=== PATIENT | male | born 1990 | race Two or more races ===

== ENCOUNTER → 2022-07-16 15:01 | Outpatient (BNVA) | payer SELFPAY | PROVIDERS: PCP Nurse Practitioner Family; Visit Provider Physician Assistant | DX: Z02.79 Encounter for issue of other medical certificate (principal) ==

== ENCOUNTER 2022-08-09 10:11 | Outpatient (REF) | payer OTHER, SELFPAY ==
[2022-08-09 13:59] LABS: Hematocrit 43.8 % (42.0-52.0); Hemoglobin 14.9 g/dl (14.0-18.0); Mean Corpuscular Hemoglobin 29.8 pg (27.0-33.0); Mean Corpuscular Volume 87.6 fL (80.0-98.0); Mean Platelet Volume 10.4 fL (9.4-12.4); Platelet Count 278 X10*3/uL (160-400); White Blood Count 4.7 X10*3/uL (4.8-10.8)
[2022-08-09 14:12] LABS: Alanine Aminotransferase 19 U/L (0-40); Albumin Level 4.4 g/dL (3.5-5.0); Alkaline Phosphatase 45 U/L (39-117); Anion Gap 12 (12-20); Aspartate Amino Transferase 15 U/L (5-37); Bilirubin Total 1.1 mg/dL (0.0-1.0); Blood Urea Nitrogen 17 mg/dL (9-16); Calcium 9.4 mg/dL (8.4-10.2); Carbon Dioxide 26 mmol/L (22-29); Chloride 107 mmol/L (96-108); Cholesterol 184 mg/dL; Estimated Glomerular Filt Rate > 60; Glucose Fasting 94 mg/dL (60-99); HDL Cholesterol 40 mg/dL; LDL Cholesterol Calculated 135 mg/dl; Potassium 4.4 mmol/L (3.3-5.1); Sodium 141 mmol/L (135-145); Triglycerides 49 mg/dL
[2022-08-09 14:26] LABS: TSH reflex Free T4 1.01 uIU/mL (0.32-4.0)
[2022-08-13 18:53] LABS: PSA, Ultra Sensitive 0.63 ng/mL
== END 2022-08-09 10:12 | disposition home or self-care (01) ==
LOC: HO.WFDLDS 10:11
PROVIDERS: Visit Provider Nurse Practitioner Family
DX: Z00.00 Encounter for general adult medical examination without abnormal findings (principal); F41.9 Anxiety disorder, unspecified; M54.9 Dorsalgia, unspecified
CPT/HCPCS: 36415; 80053; 80061; 84153; 84443; 85027

== ENCOUNTER 2022-08-09 10:12 | Outpatient (REF) | payer OTHER, SELFPAY | END 2022-08-09 10:13 | disposition home or self-care (01) | LOC: HO.LAB 10:12 | PROVIDERS: Visit Provider Nurse Practitioner Family | DX: Z13.89 Encounter for screening for other disorder (principal) ==

== ENCOUNTER 2022-12-10 12:47 | Outpatient (AMB) | payer OTHER, SELFPAY ==
--- NOTE | 2022-12-10 13:06 | A.OFFVIS_ITS ---
Intake Intake Visit Reasons: Frequent Urination Intake Note: New Patient presents today for initial visit frequent urination/penile curvature Urology Medications: none Blood Thinner: none PVR: Email Marketing Coordinator Required: Yes Supervisor Data Processing: Supervisor Data Processing offered & declined Accompanied by: Unknown Allergies No Known Allergies Allergy (Verified 12/11/22 06:54) Medication List - Last Reconciled 12/11/22 by Cassidy Rucker, DIE PRESS OPERATOR- naproxen 500 mg PO BID PRN pentoxifylline ER 400 mg PO BID 90 days tamsulosin 0.4 mg PO BEDTIME 30 days vitamin E (dl, acetate) 450 mg PO DAILY 90 days HPI HPI Comments History of Present Illness Details Jay is a very pleasant 32-year-old Bhutanese-speaking male patient of Dr. Carlos who was accompanied by his , daughter, and son at today's visit. He has a past medical history of anxiety an IBS. He presents to the office today as a new patient for urinary frequency, and Peyronie's disease. In discussion with the patient today reports to be doing and feeling well. He reports having followed up with urology in the past for his ongoing issues with Peyronie's disease in [place]. However, is now living here and would like to establish urology care. He reports previous urologist to have offered penile injection Xiaflex or surgical intervention for Peyronie's disease however he did not undergo either treatment options. He is also reporting urinary frequency and question of protein in his urine. However, no proteinuria noted. In office urinalysis results reviewed with the patient today. PVR 41 mL. He otherwise denies urinary urgency, incontinence, nocturia, hematuria, dysuria, foul smelling urine, changes to urinary stream, flank pain, fever, and or chills. In assessment of the patient today penis with left sided mild penile curvature. He reports no issues with obtaining and or maintaining erections however at times erections are painful. He otherwise offers no issues or concerns at this time. 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 Current occupational exposures/hazards: No Hearing needs: Yes (right ear problems) Vision needs: No Review of Systems Const Reports no additional complaints Eyes Reports no additional complaints ENT Reports no additional complaints Card Reports no additional complaints Resp Reports no additional complaints GI Reports as per HPI Reports as per HPI Musc Reports no additional complaints Neuro Reports no additional complaints Psych Reports as per HPI Endo Reports no additional complaints Titi/Lymph Reports no additional complaints Aller/Immun Reports no additional complaints Physical Exam Const General: cooperative, healthy appearing, comfortable, no acute distress, well developed, alert and awake Nutritional Appearance: average body habitus Orientation/consciousness: patient oriented x3 Limitations: no limitations HEENT Head: Yes normal to inspection, Yes normocephalic and Yes atraumatic Ears: hearing grossly normal bilaterally Eyes General: appearance normal, both eyes and all related structures Neck Neck: Yes normal visual inspection and Yes trachea midline Chest Chest palpation & inspection: normal inspection of the chest Resp Effort & Inspection: normal respiratory effort and able to speak in complete sentences Cardio Rate: regular rate GI Inspection: Yes normal to inspection General: Yes no CVA tenderness Penis: circumcised and other (Left-sided curvature of the penis noted) Meatus: meatus normal Scrotum: scrotum normal Testes: Testes normal Back/Spine/Pelvis Back: no CVA tenderness Skin General skin exam: no rashes or lesions noted Neuro General: patient oriented x3 Extrem General: Yes normal to inspection Psych Appearance: grossly normal and well kempt Mental Status: mental status grossly normal Speech and movement: Normal speech and movement present and Clear speech present Affect: normal affect Attitude: cooperative Thought process: Normal thought process present Thought content: Normal thought content present Insight: Good insight present (Psych) Judgement: Good judgement present (Psych) Office Procedures Post Void Residual Post Residual Void Post Void Residual (PVR): 41 [id number]-Znyl Void Residual by ultrasound Results AMB Urinalysis, Automated UA Leukoctes 0 Leann/uL Last Edit by Jacinto Doherty on 12/10/22 13:29 UA Nitrite Last Edit by Jacinto Doherty on 12/10/22 13:29 UA Urobilinogen 0.2 mg/dL Last Edit by Jacinto Doherty on 12/10/22 13:29 UA Protein 0 mg/dL Last Edit by Jacinto Bermanchau on 12/10/22 13:29 UA pH 6.0 Last Edit by Jacinto Bermanchau on 12/10/22 13:29 UA Blood 0 Kye/uL Last Edit by Jacinto Antonellachau on 12/10/22 13:29 UA Specific [place] 1.020 Last Edit by Jacinto Bermanchau on 12/10/22 13:29 UA Ketone Last Edit by Jacinto Bermanchau on 12/10/22 13:29 UA Bilirubin 0 mg/dL Last Edit by Jacinto [place]ell[place]ahu on 12/10/22 13:29 UA Glucose 0 mg/dL Last Edit by Jacinto Antonellachau on 12/10/22 13:29 Results Reviewed Results Reviewed: Laboratory Last Values Urine pH (Auto) 6.0 12/10/22 13:14 Specific [place] (Auto) 1.020 12/10/22 13:14 Urine Protein (Auto) 0 mg/dL 12/10/22 13:14 Glucose (UA)(Auto) 0 mg/dL 12/10/22 13:14 Urine Blood (Auto) 0 Kye/uL 12/10/22 13:14 Urine Bilirubin (Auto) 0 mg/dL 12/10/22 13:14 Urine Urobilinogen (Auto) 0.2 mg/dL 12/10/22 13:14 Leukocyte Esterase (Auto) 0 Leann/uL 12/10/22 13:14 Assessment & Plan Assessment & Plan (1) Urinary frequency: Code(s): R35.0 - Frequency of micturition (2) Peyronie's disease: Code(s): N48.6 - Induration penis plastica Plan In office urinalysis results reviewed with the patient; as noted above Discussed obtaining retroperitoneal ultrasound for further assessment evaluation. Discussed bladder triggers/irritants. PVR 41ml's Discussed incomplete bladder emptying. Start Flomax as discussed and prescribed. Start Pentoxifylline and vitamin-E as discussed and prescribed. Peyronie's educational information pamphlet provided Discussed obtaining vacuum pump; instructions provided Discussed near future in office cystoscopy if urinary symptoms persist/worsen Follow-up in [address] Koo as discussed Orders: Orders US retroperitoneal comp 12/10/22 R35.0 - Frequency of micturition Prostate Specific Antigen 12/10/22 R35.0 - Frequency of micturition, Z80.42 - Family history of malignant neoplasm of prostate AMB Urinalysis Automated 12/10/22 Z13.9 - Encounter for screening, unspecified AMB Post Void Residual by ultrasound 12/10/22 R35.0 - Frequency of micturition Medications: New tamsulosin 0.4 mg PO BEDTIME 30 days 30 caps 3RF N40.1 - Benign prostatic hyperplasia with lower urinary tract symptoms, R35.1 - Nocturia pentoxifylline ER administer with meals 400 mg PO BID 90 days 180 tabs 1RF vitamin E (dl, acetate) 450 mg PO DAILY 90 days 90 caps 1RF N48.6 - Induration penis plastica Patient Instructions: The patient had an opportunity to ask questions regarding the treatment plan. All questions were answered. Physical exam, labs, and imaging were discussed and reviewed in detail. As well as risks, benefits, and discussion of treatment choices. No major barriers to understanding were identified. The patient expressed understanding and agreement with the above treatment plan. The patient was made aware they should contact our office by phone for worsening of their current condition, the appearance of new symptoms, or with any questions or concerns. Compliance is encouraged with any medications and follow up testing that is ordered. It is a privilege to be allowed the opportunity to participate in? your urological care.? Again, if you have any questions or concerns If you have any questions or concerns please do not hesitate to contact me. The office is [phone]. This note is constructed using voice recognition software. While every effort has been made to ensure accuracy curtain drier errors may have been included. Yours sincerely, VU Ernandez- Coding Level of Care Code New Pt Level 4 (71261) Diagnoses Urinary frequency R35.0 Peyronie's disease N48.6 CPT Codes Post Residual Void - PVR CPT Code: 79619-Tcqp Void Residual by ultrasound ([id number])
== END 2022-12-10 13:47 | disposition home or self-care (01) ==
PROVIDERS: PCP Nurse Practitioner Family; Visit Provider Nurse Practitioner Family
DX: R35.0 Frequency of micturition (principal); N48.6 Induration penis plastica
CPT/HCPCS: 99204

== ENCOUNTER → 2022-12-10 12:47 | Outpatient (BNVA) | payer OTHER, SELFPAY | PROVIDERS: PCP Nurse Practitioner Family; Visit Provider Nurse Practitioner Family | DX: R35.0 Frequency of micturition (principal); Z80.42 Family history of malignant neoplasm of prostate; N48.6 Induration penis plastica | CPT/HCPCS: 51798; 99202 ==

== ENCOUNTER 2022-12-29 11:40 | Outpatient (REF) | payer OTHER, SELFPAY ==
[2022-12-29 14:33] LABS: Prostate Specific Antigen 0.77 ng/mL (<0.05-4.0)
== END 2022-12-29 11:41 | disposition home or self-care (01) ==
LOC: HO.HMGCLDS 11:40
PROVIDERS: PCP Nurse Practitioner Family; Visit Provider Nurse Practitioner Family
DX: Z12.5 Encounter for screening for malignant neoplasm of prostate (principal); R35.0 Frequency of micturition; Z80.42 Family history of malignant neoplasm of prostate
CPT/HCPCS: 36415; 84153

== ENCOUNTER 2023-02-25 10:18 | Outpatient (REF) | payer OTHER, SELFPAY ==
[2023-02-25 13:34] LABS: Appearance Urine Clear; Color Urine Yellow; Glucose Urine UA Negative (Negative); Leukocyte Esterase Urine Negative (Negative); Nitrite Urine Negative (Negative); PH 7.5 (5.0-9.0); Specific Gravity - Urine 1.025 (1.005-1.025); Urine Blood Negative (Negative); Urine Ketones Negative (Negative); Urine Protein Negative (Neg-Trace)
== END 2023-02-25 10:19 | disposition home or self-care (01) ==
LOC: HO.HMGCLDS 10:18
PROVIDERS: PCP Nurse Practitioner Family; Visit Provider Nurse Practitioner Family
DX: Z00.00 Encounter for general adult medical examination without abnormal findings (principal); F41.9 Anxiety disorder, unspecified; M54.9 Dorsalgia, unspecified
CPT/HCPCS: 81003

== ENCOUNTER 2023-03-07 15:22 | Outpatient (REF) | payer OTHER, SELFPAY ==
--- NOTE | ~2023-03-07 | US_ITS ---
EXAMINATION: US RETROPERITONEAL COMPLETE (RENAL) CLINICAL INFORMATION: Frequency of micturition. COMPARISON: None available. TECHNIQUE: Real-time imaging of the kidneys and bladder. FINDINGS: RIGHT KIDNEY: 10.6 x 6.2 x 6.5 cm (SAG x AP x TRV). The kidney is normal in size, contour, and echogenicity. Renal cortical thickness is normal. No focal parenchymal lesions or hydronephrosis. 5 mm nonobstructing lower pole renal stone. LEFT KIDNEY: 11.0 x 6.2 x 4.9 cm (SAG x AP x TRV). The kidney is normal in size, contour, and echogenicity. Renal cortical thickness is normal. No calculi or focal parenchymal lesions. No hydronephrosis. BLADDER: Well distended and normal. Bilateral ureteral jets are demonstrated. Prevoid bladder volume is 102 mL. Postvoid bladder volume is 19 mL. Other: Prostate is enlarged with a volume of 41 mL. There is fullness of the base of the prostate gland, unclear if this could reflect a hypertrophied median lobe versus a discrete prostatic lesion. US/US retroperitoneal comp IMPRESSION: 1. 5 mm nonobstructing right lower pole renal stone. 2. Prostate is enlarged with a volume of 41 mL. There is fullness of the base of the prostate gland, unclear if this could reflect a hypertrophied median lobe versus a discrete prostatic lesion. Recommend correlation with PSA and clinical exam and if warranted prostate MR be obtained for further imaging evaluation
== END 2023-03-07 15:23 | disposition home or self-care (01) ==
LOC: HO.HMGCX 15:22
PROVIDERS: PCP Nurse Practitioner Family; Visit Provider Nurse Practitioner Family
DX: R35.0 Frequency of micturition (principal)
CPT/HCPCS: 76770

== ENCOUNTER 2023-03-11 14:04 | Outpatient (AMB) | payer OTHER, SELFPAY ==
--- NOTE | 2023-03-11 14:11 | A.OFFVIS_ITS ---
Intake Intake Visit Reasons: 3m follow up Intake Note: Patient is Present for Telephone Follow Up Urology Med: Tamsulosin Antibiotic Allergy: None Blood Thinner: None Allergies No Known Allergies Allergy (Verified 03/11/23 14:13) Medication List - Last Reconciled 03/11/23 by Óscar Koo MD naproxen 500 mg PO BID PRN pentoxifylline ER 400 mg PO BID 90 days tamsulosin 0.4 mg PO BEDTIME 30 days vitamin E (dl, acetate) 450 mg PO DAILY 90 days HPI HPI Comments History of Present Illness Details Jay is a pleasant Burkinan-speaking male. He is a patient of Dr. Carlos. He is seen for the following urologic conditions - lower urinary tract symptoms - Peyronie's disease Follow-up tele visit Mild benefit Prior evaluation with left-sided mild penile curvature. No issues with obtaining erections. Prior evaluation with urologist in [place]. Suggest office cystoscopy fluid urgency and frequency. penile ultrasound for lesion. 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 Current occupational exposures/hazards: No Hearing needs: Yes (right ear problems) Vision needs: No Review of Systems Const All systems reviewed & are unremarkable except as noted in HPI and below Reports no additional complaints Resp Reports no additional complaints GI Reports no additional complaints Reports as per HPI Musc Reports no additional complaints Physical Exam Telemedicine evaluation Appropriate responses Regular breathing rate and rhythm HEENT Head: Yes normal to inspection Ears: hearing grossly normal bilaterally Eyes General: appearance normal, both eyes and all related structures Neck Neck: Yes normal visual inspection Chest Chest palpation & inspection: normal inspection of the chest Resp Effort & Inspection: normal respiratory effort and able to speak in complete sentences Assessment & Plan Assessment & Plan (1) Urinary frequency: Code(s): R35.0 - Frequency of micturition (2) Peyronie's disease: Code(s): N48.6 - Induration penis plastica Plan Two month follow-up penile ultrasound, cystoscopy Orders: Orders US penile 1 Month N48.6 - Induration penis plastica Patient Instructions: Imaging studies, laboratory and physical exam results were discussed and reviewed in detail. No major barriers to patient understanding were identified. An opportunity to ask questions regarding the treatment plan was provided. All questions were answered. The patient expressed understanding and agreement with the above treatment plan. The patient is aware they should contact our office by phone for worsening of their current condition or the appearance of new urologic symptoms. Compliance is encouraged with any medications and followup testing that is ordered. It is a privilege to participate in the urologic care of your patient. If you have any questions or concerns regarding treatment for the above conditions, or other urologic issues, please do not hesitate to contact me. The office telephone contact is [phone]. This note is constructed using voice recognition software. While every effort has been made to ensure accuracy can closing machine tender errors may have been included. Yours sincerely, Dr Óscar Koo MD, [facility] - Urology Providers of Expert, Compassionate Care for the Genitourinary System Telehealth Telehealth Location of provider rendering services: practice address Location of patient: address on file Patient Identification confirmed using: Name, : Yes Telehealth method: video Patient verbally consented to treatment: Yes Patient verbally consented to billing insurance company: Yes Patient informed of any privacy concerns related to visit: Yes Coding Level of Care Code Tele Est Pt Level 3 (50206) Diagnoses Urinary frequency R35.0 Peyronie's disease N48.6
== END 2023-03-11 14:57 | disposition home or self-care (01) ==
LOC: HO.HUSH 14:05
PROVIDERS: PCP Nurse Practitioner Family; Visit Provider Urology
DX: R35.0 Frequency of micturition (principal); N48.6 Induration penis plastica
CPT/HCPCS: 99213

== ENCOUNTER → 2023-03-11 14:04 | Outpatient (BNVA) | payer OTHER, SELFPAY | PROVIDERS: PCP Nurse Practitioner Family; Visit Provider Urology ==

== ENCOUNTER 2023-05-16 13:23 | Outpatient (REF) | payer OTHER, SELFPAY ==
--- NOTE | ~2023-05-16 | US_ITS ---
EXAMINATION: US PENILE CLINICAL INFORMATION: Induration of penis COMPARISON: None TECHNIQUE: Sonographic imaging focused on the penis is performed using a high-resolution linear transducer. Grayscale and duplex Doppler imaging is performed. FINDINGS: There are a few small foci of calcification along the tunica albuginea around the corpora cavernosa with largest measuring up to 0.3 cm (image 21/34). On the color Doppler images, there is no evidence of increased vascularity around the foci of calcification. No noncalcified plaques are detected. No penile mass or hematoma. No evidence of penile fracture. The cavernous arterial Doppler exam shows normal monophasic waveform of the flaccid penis. US/US penile IMPRESSION: This ultrasound examination of the penis shows presence of a few foci of calcification along the tunica albuginea as may be seen in Peyronie disease. Otherwise, unremarkable examination of the penis.
== END 2023-05-16 13:24 | disposition home or self-care (01) ==
LOC: HO.US 13:23
PROVIDERS: PCP Nurse Practitioner Family; Visit Provider Urology
DX: N48.6 Induration penis plastica (principal)
CPT/HCPCS: 76857

== ENCOUNTER 2023-05-18 12:50 | Outpatient (AMB) | payer OTHER, SELFPAY ==
--- NOTE | 2023-05-18 12:52 | A.OFFVIS_ITS ---
Intake Intake Visit Reasons: cysto Intake Note: Patient is Present for Cystoscopy Urology Med: Tamsulosin Antibiotic Allergy: None Blood Thinner: None URO- G Disposable Cystoscope lot: [id number] exp: 09/12/2024 Allergies No Known Allergies Allergy (Verified 05/18/23 13:03) HPI HPI Comments History of Present Illness Details Jay is a pleasant [place]er-speaking male. He is a patient of Dr. Carlos. He is seen for the following urologic conditions - lower urinary tract symptoms - Peyronie's disease Here for cystoscopy Has baseline urgency and frequency Prior penile curve Office cystoscopy with unstable bladder and prostate tightness Trial bladder medications oxybutynin with tamsulosin Will bring photos of erection for next appointment Lower urinary tract symptoms Weak stream Urgency and frequency Improved with decreasing spicy food Cystoscopy with unstable bladder Peyronie's Disease prior assessment with nurse practitioner Had recommended pentoxifylline, tamsulosin, vitamin E with VAC therapy IBS and anxiety with cramping PFSH Medical History Anxiety Dermatitis IBS (irritable bowel syndrome) Sinusitis Family History Mother High blood pressure Paternal Grandfather High cholesterol Abnormal cardiovascular function Social History Housing: House Patient Tobacco Use Status: Never used Tobacco e-Cigarette/Vaping Use: Never Used service: No Current occupational status: employed 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 Current occupational exposures/hazards: No Hearing needs: Yes (right ear problems) Vision needs: No Review of Systems Const Denies chills and Denies fever(s) Card Reports no additional complaints and Denies syncope Resp Denies cough GI Denies abdominal pain and Denies heartburn Reports as per HPI and Denies change in libido Neuro Denies syncope Psych Denies change in libido Endo Denies change in libido Physical Exam Const General: cooperative, healthy appearing, comfortable and no acute distress Orientation/consciousness: patient oriented x3 HEENT Face and sinus: Yes normal facial exam Mouth: moist mucous membranes Neck Neck: Yes normal visual inspection, Yes full ROM and Yes trachea midline Chest Chest palpation & inspection: normal inspection of the chest Resp Effort & Inspection: normal respiratory effort, able to speak in complete sentences and no respiratory distress GI Inspection: Yes normal to inspection Back/Spine/Pelvis Cervical Spine: normal cervical lordosis Thoracic/Lumbar Spine: thoracic and lumbar spine normal to inspection Skin General skin exam: no rashes or lesions noted Neuro General: patient oriented x3, gait normal, tone normal and moves all extremities Extrem General: Yes normal to inspection and Yes capillary refill normal Office Procedures Cystoscopy Consent Discussed risk and benefit or proposed procedure with the patient. Information consent for procedure given to the patient. Discussed technical aspects, risks, benefits and alternatives in full. Addressed all of the patient's questions and concerns regarding the procedure. The patient demonstrated knowledge and understanding. They wish to proceed with this procedure. Preparation The patient was prepped in the usual manner. A oracle adf consultant was present and in the room. Genitalia was prepped with betadine solution in a sterile manner. Lidocaine Jelly 2% was placed into the urethra and 16Fr flexible Olympus cystoscope was inserted into the meatus after adequate lubrication. Procedure Meatus normal, circumcised Urethra entering posterior ureteral normal Prostatic Urethra unremarkable Bladder examination with retroflexion of cystoscope Bladder Orifices normal shape and position Bladder Capacity medium Trabeculations grade 1 Cellule Formation - Diverticulum Formation - Mucosal Erythema - Bladder Tumor - [id number]-[id number] DISPOSABLE SCOPE URO-G FLEXIBLE SCOPE Procedure code (CPT) selection complete Office Meds lidocaine HCl 2 % mucosal jelly in applicator Performing Provider: Óscar Koo MD Performing Location: [facility] Administered by: Jeanne Coffman RN on 05/18/23 13:28 Dose Route Admin Location Dispensed Lot Number Expiration Date NDC Review Rn 10 mL intra-urethral 10 mL nitrofurantoin monohydrate/macrocrystals 100 mg capsule Performing Provider: Óscar Koo MD Performing Location: [facility] Administered by: Jaenne Coffman RN on 05/18/23 13:28 Dose Route Admin Location Dispensed Lot Number Expiration Date NDC Review Rn 100 mg PO 1 cap naproxen 500 mg tablet Performing Provider: Óscar Koo MD Performing Location: [facility] Administered by: Jeanne Coffman RN on 05/18/23 13:28 Dose Route Admin Location Dispensed Lot Number Expiration Date NDC Review Rn 500 mg PO 1 tab Results AMB Urinalysis, Automated UA Leukoctes 0 Leann/uL Last Edit by Gregoria Heath, A on 05/18/23 13:15 UA Nitrite Negative Last Edit by Gregoria Heath, A on 05/18/23 13:15 UA Urobilinogen 0.2 mg/dL Last Edit by Gregoria Heath, A on 05/18/23 13:1 5 UA Protein 0 mg/dL Last Edit by Gregoria Heath, A on 05/18/23 13:15 UA pH 6.0 Last Edit by Gregoria Heath, A on 05/18/23 13:15 UA Blood 0 Kye/uL Last Edit by Gregoria Heath, A on 05/18/23 13:15 UA Specific [place] 1.030 Last Edit by Gregoria Heath, A on 05/18/23 13: 15 UA Ketone Negative Last Edit by Gregoria Heath, A on 05/18/23 13:15 UA Bilirubin 0 mg/dL Last Edit by Gregoria Heath, A on 05/18/23 13:15 UA Glucose 0 mg/dL Last Edit by Gregoria Heath, A on 05/18/23 13:15 Results Reviewed Results Reviewed: Laboratory Last Values Urine pH (Auto) 6.0 05/18/23 12:55 Specific [place] (Auto) 1.030 05/18/23 12:55 Urine Protein (Auto) 0 mg/dL 05/18/23 12:55 Glucose (UA)(Auto) 0 mg/dL 05/18/23 12:55 Urine Ketones (Auto) Negative 05/18/23 12:55 Urine Blood (Auto) 0 Kye/uL 05/18/23 12:55 Urine Nitrite (Auto) Negative 05/18/23 12:55 Urine Bilirubin (Auto) 0 mg/dL 05/18/23 12:55 Urine Urobilinogen (Auto) 0.2 mg/dL 05/18/23 12:55 Leukocyte Esterase (Auto) 0 Leann/uL 05/18/23 12:55 Assessment & Plan Assessment & Plan (1) Peyronie's disease: Code(s): N48.6 - Induration penis plastica (2) Urinary frequency: Code(s): R35.0 - Frequency of micturition Plan Two month follow-up Orders: Orders AMB Cystoscopy 05/18/23 R35.0 - Frequency of micturition AMB Urinalysis Automated 05/18/23 Z13.9 - Encounter for screening, unspecified, R35.0 - Frequency of micturition Medications: New oxybutynin chloride ER 5 mg PO DAILY 30 tabs 1RF 30 days R35.0 - Frequency of micturition, R39.15 - Urgency of urination, N32.81 - Overactive bladder Refilled tamsulosin 0.4 mg PO BEDTIME 30 caps 1RF 30 days R35.1 - Nocturia, N40.1 - Benign prostatic hyperplasia with lower urinary tract symptoms Patient Instructions: Imaging studies, laboratory and physical exam results were discussed and reviewed in detail. No major barriers to patient understanding were identified. An opportunity to ask questions regarding the treatment plan was provided. All questions were answered. The patient expressed understanding and agreement with the above treatment plan. The patient is aware they should contact our office by phone for worsening of their current condition or the appearance of new urologic symptoms. Compliance is encouraged with any medications and followup testing that is ordered. It is a privilege to participate in the urologic care of your patient. If you have any questions or concerns regarding treatment for the above conditions, or other urologic issues, please do not hesitate to contact me. The office telephone contact is [phone]. This note is constructed using voice recognition software. While every effort has been made to ensure accuracy speaker wirer errors may have been included. Yours sincerely, Dr Óscar Koo MD, [facility] - Urology Providers of Expert, Compassionate Care for the Genitourinary System Coding Level of Care Code Est Pt Level 4 (45397) Diagnoses Peyronie's disease N48.6 Urinary frequency R35.0 CPT Codes Cystoscopy - CPT: 48833-[id number] ([id number])
== END 2023-05-18 14:15 | disposition home or self-care (01) ==
PROVIDERS: PCP Nurse Practitioner Family; Visit Provider Urology
DX: N48.6 Induration penis plastica (principal); R35.0 Frequency of micturition
CPT/HCPCS: 52000; 99214

== ENCOUNTER → 2023-05-18 12:50 | Outpatient (BNVA) | payer OTHER, SELFPAY | PROVIDERS: PCP Nurse Practitioner Family; Visit Provider Urology | DX: N48.6 Induration penis plastica (principal); R35.0 Frequency of micturition | CPT/HCPCS: 52000; 81003; 99212 ==

== ENCOUNTER → 2023-08-18 12:43 | Outpatient (BNVA) | payer SELFPAY | PROVIDERS: PCP Nurse Practitioner Family; Visit Provider Physician Assistant | DX: Z02.79 Encounter for issue of other medical certificate (principal) ==

== ENCOUNTER → 2024-07-10 10:25 | Outpatient (BNVA) | payer SELFPAY | PROVIDERS: PCP Nurse Practitioner Family; Visit Provider Physician Assistant Medical | DX: Z02.79 Encounter for issue of other medical certificate (principal) ==

== ENCOUNTER 2025-04-30 12:18 | Outpatient (REF) | payer OTHER, SELFPAY ==
--- OUTSIDE RECORDS SUMMARY | 2025-04-30 16:20 | XMS_ITS | Clinical Summary ---
Author Organization [facility] Address [address] [place] [address] Care Team Providers Care Long Distance Operator Name Role Phone Willard Mercedes MD Primary Care Provider [phone] Allergies No known active allergies Medications loperamide (IMODIUM) 2 mg capsuleIndicatio ns:Irritable bowel syndrome with diarrhea Take 1 capsule (2 mg total) by mouth at bed time. 30 capsule 1 9 Active mometasone (NASONEX) nasal spray Administer 2 sprays into each nostril daily. 17 g 5 1 Active alfuzosin (UROXATRAL) 10 mg 24 hr tablet Take 1 tablet (10 mg total) by mouth once a day. 30 tablet 3 1 Active melatonin 5 mg tabletIndication s:Insomnia, unspecified type Take 1 tablet (5 mg total) by mouth nightly. 30 tablet 1 2 Active ketoconazole (NIZORAL) 2% shampoo Apply topically to the affected area 2 times a week. Apply to damp skin, lather, leave on 5 to 10 minutes, and rinse 120 mL 5 2 Active loratadine (CLARITIN) 10 mg tablet Take 1 tablet (10 mg total) by mouth once a day. 30 tablet 11 2 Active busPIRone (BUSPAR) 5 mg tablet Take 1 tablet (5 mg total) by mouth 2 times a day as needed (Take once in the morning, can take another later in the day for anxiety). 90 tablet 2 2 Active buPROPion SR (WELLBUTRIN SR) 100 mg tablet Take 1 tablet (100 mg total) by mouth once a day. 30 tablet 2 2 Active Active Problems Problem Noted Date Diagnosed Date Constipation 03/19/2022 Assessment & Plan (03/19/2022 4:25 PM EST): Wellbutrin and BuSpar are both fairly unlikely drugs to induce constipation, and given that he stopped both medications at the same time with improvement of symptoms it is difficult to determine which one is the culprit. His has been feeding him foods high in fiber as well as fiber supplements, we talked about other foods containing high fiber such as prunes or prune juice which he can add to his diet as he restarts these medications to prevent recurrence of constipation Thrombosed external hemorrhoid 10/28/2021 Diarrhea 04/09/2019 Assessment & Plan (04/09/2019 10:38 AM EST): Patient is likely suffering from acute viral gastroenteritis however because of his recent use of antibiotics I am concerned for C. difficile. Will test his stool for C. difficile. Brat diet was discussed Insomnia 12/15/2018 Assessment & Plan (12/15/2018 11:19 PM EDT): Discussed importance of proper sleep hygiene, had tried benadryl in the past with minimal effect. Suspect that many of his symptoms are mediated by anxiety. Please see anxiety section for further details. We will trial Melatonin 6mg qhs and he will follow-up in 5 weeks time for ongoing assessment. Hearing loss of right ear 12/15/2018 Assessment & Plan (12/15/2018 11:06 PM EDT): No cerumen impaction, canals appear clear bilaterally. Did not appreciate any vesicles within right ear nor perforated TM. Suspect that this is secondary to noise exposure however will send him to Audiology for formal audiologic assessment. Anxiety 12/15/2018 Overview (03/19/2022): Did not tolerate sertraline - irritability Started on Welbutrin and buspar 01/21 Assessment & Plan (03/19/2022 4:27 PM EST): Jay has previously been on sertraline which he did not tolerate, he was switched to Wellbutrin and daily BuSpar for management of anxiety symptoms at his last visit to the [place] office. His mood symptoms were improved according to him and his but he stopped taking this both of these medications approximately 2 weeks ago due to complaints of constipation. He said his mood has been worse and he has had more trouble sleeping and more anxiety since he stopped taking the medicines. We discussed a plan to restart his anxiety medications. We will start with adding back BuSpar 5 mg once in the morning, with a second dose as needed later in the day if he feels particularly anxious. He should take BuSpar for 1 week and then add back Wellbutrin. We will prescribe him a reduced dose of bupropion 100 mg SR as opposed to his prior prescription which was an extended release tablet. BuSpar 5 mg twice daily as needed Wellbutrin SR 100 mg daily starting in 1 week Assessment & Plan (12/15/2018 11:22 PM EDT): Made it clear to patient that in no way are trying to minimize his complaints but many of his symptoms can be seen in anxiety; difficult sleeping, GI distress, etc... I explained that we will continue to work-up all of his problems however to temper his expectations as it is likely nothing will be found, if this is the case then it is very likely all mediated by anxiety. I offered to trial a low dose of SSRI and closely follow-up to assess the efficacy and benefits of this. He is in agreement with this plan. reports that he is often very worried about many different things and has a hard time relaxing because of those, no reports of overt panic attacks. - Sertraline 25mg daily - if this has positive effect and minimal side effects we will increase to 50mg daily at time of next visit Dermatitis 12/08/2018 Assessment & Plan (12/15/2018 11:17 PM EDT): No rash appreciated during today's visit. Reportedly on the extensor surface of the elbow as well as face, thinks it is related to sun exposure. He states that the rash is papular in appearance and intensely pruritic, did not use any new soaps or products. He did use some of his 's topical steroid cream with resolution of rash. He has a dermatology appointment scheduled which I have encouraged him to keep. Unclear what the etiology of the rash is, not on any medications that are implicated in photosensitivity. Differential also includes dermatitis herpetiformis though we do not know that he has celiac disease and this rash is usually confined to the extensor surfaces. - f/u Dermatology recommendations Irritable bowel syndrome with diarrhea 9 Assessment & Plan (11/08/2018 6:31 PM EDT): Patient had previously been evaluated by gastroenterology and it was determined that his symptoms were likely secondary to IBS-D. Patient does have a significant amount of anxiety regarding his symptoms and in the reading the prior notes it appears that he was concerned that this could represent a malignancy. When he was seen by GI they recommended FODMAP diet however his reports that this only helped minimally at best. We again discussed the fact that IBS D can certainly be distressing however is not a life-threatening condition. The management of IBS D is control of symptoms. It seems that at that time gastroenterology felt that it would be prudent to evaluate for celiac disease though this was not done so at the time of his next visit I would consider sending a celiac panel. For today I have started him on loperamide 2 mg nightly as he says that his diarrhea is predominantly occurs in the morning. He had previously tried loperamide and was taking it multiple times a day though then experienced constipation and abdominal discomfort. We will reevaluate his symptoms in 5 weeks and it may also be of some utility to treat his underlying anxiety with possibly a low-dose SSRI to see if this may improve the symptoms as well. Frequency of urination 11/08/2018 Assessment & Plan (12/15/2018 11:25 PM EDT): UA during last visit negative, BMP within normal limits, GC/chlamydia negative. Reports urinary urgency and frequency, no dysuria or hematuria. Often feels that he has incompletely emptied and has a few drops of incontinence post-micturition at times. Often wakes up 3-5 times per night to urinate though it is of small volumes. Last visit we discussed cutting back on caffeine as this can be a bladder irritant and reducing fluid intake in the hours before bed time. It does not appear this intervention helped much. - referral to Urology, appreciate further recommendations Assessment & Plan (11/08/2018 6:34 PM EDT): This is been occurring for the past 2 to 3 weeks, there is no associated fevers or chills, and as noted in HPI he is in a monogamous relationship with his . He does have some discomfort with urination which he localizes to the bladder but has not complained of any overt burning and there is no purulent discharge. He has no external genital lesions and has not had any inguinal lymphadenopathy. As before, there has been no hematuria, no renal colic, and no CVA tenderness on exam. He does have a family history of nephrolithiasis though given the fact that a [id number] urinalysis in the clinic was negative for any blood or leukocytes this is less likely. He does have roughly 4-5 episodes per night of nocturia but has had no enuresis and has had no involuntary loss of bladder function. There is no weakness in the legs or saddle anesthesia that would prompt concern for possible spinal cord process causing the symptoms. There is a family history of diabetes so maintain some index of suspicion that this may be related however again on his urinalysis he had no glucose or ketones which would have been expected. UA was sent to the lab which again confirmed no blood or leukocytes and no glucose. I have also sent for GC and Chlamydia testing as well as a hemoglobin A1c. If all of these are negative and he continues to have large volume polyuria he may need to have a 24-hour urine collection to quantify it. He will follow-up in 5 weeks at which point we will reassess his symptoms. Chronic abdominal pain 11/17/2017 Assessment & Plan (12/15/2018 10:47 PM EDT): Ongoing issue for him. Has been seen by GI who felt that this is most likely IBS and required reassurance as well as education regarding FODMAP diet. Last visit he was prescribed Loperamide to be taken at bedtime as he was mostly experiencing diarrheal symptoms in the mornings, this did help however he was then constipated and complained of worsening cramps. In reviewing the consult note from GI they did recommend testing for Celiac which we will do today. I explained to the patient and his that it is unlikely to be the diagnosis and it most likely is IBS however for completeness sake we should verify that he in fact has no gluten intolerance. - f/u Celiac panel - c/w FODMAP diet - recommended to avoid lactose containing products - c/w Loperamide as needed Resolved Problems Problem Noted Date Diagnosed Date Resolved Date Acute recurrent frontal sinusitis 12/07/2019 06/11/2020 Immunizations Immunization Administration Dates Next Due Measles, Mumps, and Rubella Vaccine 03/01/2018 Tetanus Toxoid, Reduced Diph theria Toxoid, and Acellular Pertussis Vaccine, Adsorbed 01/08/2022 Varicella Virus Vaccine 03/01/2018 Family History Medical History Relation Name Comments Diverticulitis Father Relation Name Status Comments Father Alive Mother Alive Social History Tobacco Use Types Packs/Day Years Used Date Smoking Tobacco: Never Smokeless Tobacco: Never Tobacco Cessation:Counseling Given: Not Answered Alcohol Use Standard Drinks/Week Comments Yes 0 (1 standard drink = 0.6 oz pur e alcohol) Sex and Gender Information Value Date Recorded Sex Assigned at Male 06/11/2020 7:40 AM EST Legal Sex Male 10:24 AM EDT Gender Identity Male 06/11/2020 7:40 AM EST Sexual Orientation Straight 06/11/2020 7: 40 AM EST Last Filed Vital Signs Vital Sign Reading Time Taken Comments Blood Pressure 137/78 03/19/2022 4:00 PM EST Pulse 75 03/19/2022 4:00 PM EST Temperature 36.7 C (98 F) 10/26/2021 11:05 AM EDT Respiratory Rate 16 03/19/2022 4:00 PM EST Oxygen Saturation 97% 03/19/2022 4:00 PM EST Inhaled Oxygen Concentration - - Weight 73 kg (161 lb) 03/19/2022 4:00 PM EST Height 168.1 cm (5' 6.18 ) 03/19/2022 4:00 PM ES T Body Mass Index 25.84 03/19/2022 4:00 PM EST Plan of Treatment Health Maintenance Due Date Last Done Comments HIV Screening 1990 Hepatitis B Vaccines (1 of 3 - 19+ 3-dose series) 2010 Varicella Vaccines (2 of 2 - 13+ 2-dose series) 03/29/2018 03/01/2018 Alcohol/Substance Use Screening 05/02/2024 Influenza Vaccine (#1) 2024 COVID-19 Vaccine (1 - 2024-2 6 season) 2024 DTaP,Tdap,and Td Vaccines (2 - Td or Tdap) 01/09/2032 01/08/2022 Pneumococcal Vaccine: Pediat lenny (0-5 Years) and At-Risk Patients (6-50 Years) Aged Out No longer eligible b ased on patient's age to complete this topic [facility] Directives Documents on File Type Date Recorded Patient Family Day Care Provider Expl [facility] Proxy 01/12/2022 11:00 AM 09-0 Care Teams Long Distance Operator Relationship Specialty Start Date End Date Willard Mercedes MD PCP - General 11/15/21
--- OUTSIDE RECORDS SUMMARY | 2025-04-30 16:20 | XMS_ITS | Clinical Summary ---
Author Organization [facility] Address [address] [place] [address] Care Team Providers Care Animal Warden Name Role Phone Silverio Ritchie MD Primary Care Provider [phone] Social History Tobacco Use Types Packs/Day Years Used Date Smoking Tobacco: Never Assessed Sex and Gender Information Value Date Recorded Sex Assigned at Not on file Legal Sex Male 3:48 PM EST Gender Identity Not on file Sexual Orientation Not on file Last Filed Vital Signs Vital Sign Reading Time Taken Comments Blood Pressure 120/70 05/25/2021 11:00 AM EST Pulse 55 05/25/2021 11:00 AM EST Temperature - - Respiratory Rate - - Oxygen Saturation 99% 05/25/2021 11:00 AM EST Inhaled Oxygen Concentration - - Weight 73 kg (161 lb) 05/25/2021 11:00 AM EST Height 167.6 cm (5' 6 ) 05/25/2021 11:00 AM EST Body Mass Index 25.99 05/25/2021 11:00 AM EST Plan of Treatment Health Maintenance Due Date Last Done Comments Hepatitis C Screening 1990 DTaP/Tdap/Td (1 - Tdap) 2009 Hep B (1 of 3 - 19+ 3-dose series) 2010 COVID-19 Vaccine ( - 2024-2 6 season) 2024 Influenza (#1) 2024 Zoster (Shingrix) (1 of 2) 2041 HPV Vaccine (No Doses Required) Completed Hep A Aged Out No longer eligi ble based on patient's age to complete this topic Hib Aged Out No longer eligi ble based on patient's age to complete this topic Meningococcal ACWY Aged Out No longer eligible based on patient's age to complete this topic Pneumococcal Aged Out No longer eligi ble based on patient's age to complete this topic Insurance * Guarantor: JAY WICK Account Type Relation to Patient Date of Phone Billing Address Personal/Family [address] [place] [address] MEDICAID Care Teams Animal Warden Relationship Specialty Start Date End Date Silverio Ritchie MD [facility] [address] [place] [id number] PCP - General Family Medicine 07/07/22
[2025-04-30 16:21] LABS: Appearance Urine Clear; Glucose Urine UA Negative (Negative); PH 7.0 (5.0-9.0); Specific Gravity - Urine 1.025 (1.005-1.025)
== END 2025-04-30 12:19 ==
LOC: HO.HMGCLDS 12:18
PROVIDERS: Visit Provider Urology
DX: R35.0 Frequency of micturition (principal)
CPT/HCPCS: 81001; 87086